=== PATIENT | female | born 1965 ===

== ENCOUNTER 2017-06-22 16:45 | Emergency (ER) | payer BC ==
[2017-06-22 16:46] VITALS: BMI 41.5
[2017-06-22 16:53] VITALS: RESP 18; TEMP 98.6
[2017-06-22] MEDS ORDERED: DiphenhydrAMINE 50 mg/ml Inj IVP STA (17:31)
--- NOTE | 2017-06-22 17:36 | ED PDOC ---
Arrival/HPI - General Chief Complaint: Headache Time Seen by Provider: 06/22/17 16:59 Historian: Patient - History of Present Illness Narrative History of Present Illness (Text): 06/22/17 17:32 52 yo F with past medical history of hypertension, reports onset of constant throbbing headache to the top of her head, which started this morning when she woke up at 6 AM, patient states she attributed her symptoms to possible elevated blood pressure and took her usual dose of lisinopril 10 mg, however the headache persisted all day, she took a dose of Advil at 10 AM with no improvement. Then at 2pm started to feel dizzy, described as vertigo with nausea , which is new. Patient reports that she has been experiencing similar headaches intermittently for the past month occurring at least once a week. Otherwise: (-) thunderclap headache, (-) worse headache of life, (-) fever, (-) chills, (-) URI, (-) trauma / injury, (-) CP, (-) SOB, (-) palpitations, (-) neck pain, (-) vomiting, (-) photophobia, (-) phonophobia, (-) focal weakness / numbness, (-) subjective neurologic symptoms. [facility] Islas Past Medical History - Provider Review Nursing Documentation Reviewed: Yes - Infectious Disease Hx of Infectious Diseases: None - Cardiac Hx Hypertension: Yes - Endocrine/Metabolic Hx Diabetes Mellitus Type 2: Yes - Psychiatric Hx Substance Use: No - Surgical History Hx Section: Yes (x2) Hx Cholecystectomy: Yes - Anesthesia Hx Anesthesia: Yes Hx Anesthesia Reactions: No Hx Malignant Hyperthermia: No Family/Social History - Physician Review Nursing Documentation Reviewed: Yes Family/Social History: No Known Family HX Smoking Status: Never Smoked Hx Alcohol Use: No Hx Substance Use: No Allergies/Home Meds Allergies/Adverse Reactions: Allergies No Known Allergies Allergy (Verified 06/22/17 16:47) Home Medications: Home Meds Medication Instructions Recorded Confirmed Amlodipine/Valsartan 1 tab PO DAILY 06/22/17 06/22/17 [Amlodipine-Valsartan 10-320 mg] Clarithromycin [Biaxin Filmtab] 1 tab PO DAILY 06/22/17 06/22/17 Dapagliflozin/Metformin HCl 1 tab PO DAILY 06/22/17 06/22/17 [Xigduo Xr 5 mg-1,000 mg Tablet] Review of Systems - Review of Systems Constitutional: Normal. absent: Fatigue, Weight Change, Fevers Eyes: Normal. absent: Vision Changes, Photophobia, Eye Pain ENT: Normal, Sore Throat. absent: Hearing Changes, Rhinorrhea, Epistaxis, Sinus Congestion Respiratory: Normal Cardiovascular: Normal Gastrointestinal: Normal, Nausea. absent: Abdominal Pain, Stool Changes, Vomiting, Appetite Changes Musculoskeletal: Normal. absent: Arthralgias, Back Pain, Neck Pain Skin: Normal. absent: Rash, Pruritis, Skin Lesions Neurological: Normal, Headache, Dizziness. absent: Focal Weakness, Speech Changes, Facial Droop Physical Exam - Physical Exam Narrative Physical Exam (Text): 06/22/17 17:37 GENERAL APPEARANCE: Patient is awake, alert, oriented x 3, in mild painful distress. SKIN: Warm, dry; (-) cyanosis; (-) rash. HEAD: (-) scalp swelling or tenderness, (-) temporal artery tenderness. EYES: (-) conjunctival pallor, (-) scleral icterus. ENMT: (-) sinus tenderness; mucous membranes moist. NECK: (-) tenderness, (-) stiffness, (-) meningismus, (-) lymphadenopathy. CHEST AND RESPIRATORY: (-) rales, (-) rhonchi, (-) wheezes; breath sounds equal bilaterally. HEART AND CARDIOVASCULAR: (-) irregularity; (-) murmur, (-) gallop. ABDOMEN AND GI: Soft; (-) tenderness. EXTREMITIES: (-) deformity. NEURO AND PSYCH: Mental status as above. 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 Strength and DTRs symmetric. Babinski normal bilaterally. Vital Signs Temp Pulse Resp BP Pulse Ox 06/22/17 19:14 92 H 18 129/78 95 06/22/17 19:00 93 H 18 137/79 97 06/22/17 16:45 98.6 F 93 H 18 167/87 H 97 Finger Stick Blood Glucose: 316 Medical Decision Making ED Course and Treatment: 06/22/17 17:36 52 yo F with past medical history of hypertension, reports onset of constant throbbing headache to the top of her head, which started this morning, with dizziness, described as vertigo with nausea. Plan: -- Labs -- IV fluids -- Urinalysis -- EKG -- CXR -- benadryl IV / Reglan IVl -- Reassess and disposition -- CT head EKG: NSR at 93 bpm, (-) acute ST changes, as read by PA. Chest x-ray : NAD, as read by PA. On reevaluation, patient reports significant improvement of her headache, reports no dizziness, chest pain, shortness of breath, nausea or abdominal pain. Patient has no other complaints at this time. Repeat vital signs BP 137/ 79 O2sat : 95%RA. Repeat exam, lungs cta, cardiac RRR, repeat neuro exam shows no focal findings, patient is ambulatory in the ED with a normal gait. Diagnostic results d/w the patient, notified of glucose 283, she states that she was recently dx with DM and is on metformin, which she did not disclose earlier. Patient was advised to follow up with primary care physician in 1-2 days without fail. Advised to take medication as prescribed. Return to the emergency room at any time for any new or worsening symptoms. Patient states she fully agrees with and understands discharge instructions. States that she agrees with the plan and disposition. Verbalized and repeated discharge instructions and plan. I have given the patient opportunity to ask any additional questions. - Lab Interpretations Lab Results: 06/22/17 17:30 06/22/17 17:30 Lab Results 06/22/17 17:30: Sodium 136, Potassium 4.2, Chloride 100, Carbon Dioxide 24, Anion Gap 16, BUN 9, Creatinine 0.5, Est GFR ( Amer) > 60, Est GFR (Non- Af Amer) > 60, Random Glucose 283 H, Calcium 9.2, Total Bilirubin 0.4, AST 41 H , ALT 57 H, Alkaline Phosphatase 115, Lactate Dehydrogenase 447, Total Creatine Kinase 40, Troponin I < 0.01, Total Protein 8.4 H, Albumin 4.4, Globulin 4.0, Albumin/Globulin Ratio 1.1 06/22/17 17:30: PT 10.0, INR 0.93, APTT 26.8 06/22/17 17:30: WBC 5.1, RBC 4.66, Hgb 13.5, Hct 40.0, MCV 85.8, MCH 29.0, MCHC 33.8, RDW 13.9, Plt Count 335, MPV 9.3, Gran % 58.6, Lymph % (Auto) 29.5, [place] % (Auto) 8.6 H, Eos % (Auto) 2.9, Baso % (Auto) 0.4, Gran # 2.99, Lymph # 1.5, [place] # 0.4, Eos # 0.2, Baso # 0.02 I have reviewed the lab results: Yes - RAD Interpretation Narrative RAD Interpretations (Text): 06/22/17 18:59 CT head : FINDINGS: HEMORRHAGE: No intracranial hemorrhage. BRAIN: No mass effect or edema. The valencia-white matter differentiation appears intact.Please note that MRI with diffusion imaging is more sensitive in the detection of acute ischemic event. VENTRICLES: No hydrocephalus. CALVARIUM: Unremarkable. PARANASAL SINUSES: Unremarkable as visualized. No significant inflammatory changes. MASTOID AIR CELLS: Unremarkable as visualized. No inflammatory changes. OTHER FINDINGS: None. IMPRESSION: No acute intracranial pathology identified. Radiology Orders: 06/22/17 17:30 CHEST PORTABLE [RAD] Stat 06/22/17 17:31 HEAD W/O CONTRAST [CT] Stat - Medication Orders Current Medication Orders: Discontinued Medications Diphenhydramine HCl (Benadryl) 25 mg IVP STAT STA Stop: 06/22/17 17:32 Last Admin: 06/22/17 17:45 Dose: 25 mg IVP Administration Document 06/22/17 17:45 AD (Rec: 06/22/17 17:46 AD [id number]) Charges for Administration # of IVP Administrations 1 Metoclopramide HCl (Reglan) 10 mg IVP STAT STA Stop: 06/22/17 17:32 Last Admin: 06/22/17 17:45 Dose: 10 mg IVP Administration Document 06/22/17 17:45 AD (Rec: 06/22/17 17:45 AD [id number]) Charges for Administration # of IVP Administrations 1 - 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 Disposition/Present on Arrival - Present on Arrival Any Indicators Present on Arrival: No History of DVT/PE: No History of Uncontrolled Diabetes: No Urinary Catheter: No History of Decub. Ulcer: No History Surgical Site Infection Following: None - Disposition Have Diagnosis and Disposition been Completed?: Yes Diagnosis: Headache, Dizziness Disposition: HOME/ ROUTINE Disposition Time: 19:00 Patient Plan: Discharge Condition: IMPROVED Discharge Instructions (ExitCare): Acute Headache (ED), Dizziness (ED) Print Language: UKRAINIAN Additional Instructions: Thank you for letting us take care of you today. You were treated for headache, dizziness. The emergency medical care you received today was directed at your acute symptoms. If you were prescribed any medication, please fill it and take as directed. It may take several days for your symptoms to resolve. Return to the Emergency Department if your symptoms worsen, do not improve, or if you have any other problems. Please contact your doctor in 2 days for re-evaluation and follow upt. Bring any paperwork you were given at discharge with you along with any medications you are taking to your follow up visit. Our treatment cannot replace ongoing medical care by a primary care provider (PCP) outside of the emergency department. Thank you for allowing the [facility] team to be part of your care today. If you had an X-Ray or CT scan: A Radiologist will review the ED reading if any change in treatment is needed we will contact you. Prescriptions: Metoclopramide HCl [Reglan] 10 mg PO QID PRN #20 tablet PRN Reason: Headache Referrals: Bhargavi Islas MD [Primary Care Provider] - Follow up with primary Forms: [employer] (Samoan)
[2017-06-22 17:42] LABS: BASO # 0.02 K/mm3 (0.0-2.0); BASO % 0.4 % (0.0-3.0); EOS # 0.2 (0.0-0.7); EOS % 2.9 % (1.5-5.0); GRAN # 2.99 (1.4-6.5); GRAN % 58.6 % (50.0-68.0); LYMPH # 1.5 (1.2-3.4); LYMPH % 29.5 % (22.0-35.0); MEAN CELL VOLUME 85.8 fl (80.0-105.0); MEAN CORPUSCULAR HGB CONC 33.8 g/dl (31.0-37.0); MEAN PLATELET VOLUME 9.3 fl (7.0-11.0); MONO # 0.4 (0.1-0.6); MONO % 8.6 % (1.0-6.0); RED CELL DISTRIBUTION WIDTH 13.9 % (11.5-14.5); WHITE BLOOD COUNT 5.1 10^3/ul (4.5-11.0)
[2017-06-22 17:54] LABS: ALB/GLOB RATIO 1.1 (1.1-1.8); ALKALINE PHOSPHATASE 115 U/L (38-126); ALT/SGPT 57 U/L (7-56); AST/SGOT 41 U/L (14-36); BILIRUBIN,TOTAL 0.4 mg/dL (0.2-1.3); BLOOD UREA NITROGEN 9 mg/dL (7-21); CALCIUM 9.2 mg/dL (8.4-10.5); CARBON DIOXIDE 24 mmol/L (21-33); CHLORIDE 100 mmol/L (98-107); GFR AFRICAN-AMERICAN > 60; GLUCOSE,RANDOM 283 mg/dL (70-110); INR 0.93 (0.93-1.08); PARTIAL THROMBOPLASTIN TIME 26.8 Seconds (23.7-30.8); POTASSIUM 4.2 mmol/L (3.6-5.0); SODIUM 136 mmol/L (132-148); TOTAL PROTEIN 8.4 g/dL (5.8-8.3)
[2017-06-22 18:11] LABS: TROPONIN I < 0.01 ng/mL
--- NOTE | 2017-06-22 18:18 | CT ---
PROCEDURE: CT HEAD WITHOUT CONTRAST. HISTORY: headache, elevated bp COMPARISON: None available. TECHNIQUE: Axial computed tomography images were obtained through the head/brain without intravenous contrast. Radiation dose: Total exam DLP = 725.84 mGy-cm. This CT exam was performed using one or more of the following dose reduction techniques: Automated exposure control, adjustment of the mA and/or kV according to patient size, and/or use of iterative reconstruction technique. FINDINGS: HEMORRHAGE: No intracranial hemorrhage. BRAIN: No mass effect or edema. The valencia-white matter differentiation appears intact.Please note that MRI with diffusion imaging is more sensitive in the detection of acute ischemic event. VENTRICLES: No hydrocephalus. CALVARIUM: Unremarkable. PARANASAL SINUSES: Unremarkable as visualized. No significant inflammatory changes. MASTOID AIR CELLS: Unremarkable as visualized. No inflammatory changes. OTHER FINDINGS: None. IMPRESSION: No acute intracranial pathology identified.
--- NOTE | 2017-06-22 18:38 | RAD ---
HISTORY: headache COMPARISON: No prior. FINDINGS: LUNGS: No active pulmonary disease. PLEURA: No significant pleural effusion identified, no pneumothorax apparent. CARDIOVASCULAR: Cardiomegaly is not excluded. No pulmonary vascular derangement identified nevertheless. OSSEOUS STRUCTURES: No significant abnormalities. VISUALIZED UPPER ABDOMEN: Normal. OTHER FINDINGS: None. IMPRESSION: Potential cardiomegaly versus technical magnification. No infiltrate bilaterally.
[2017-06-22 19:15] VITALS: BP 129/78; PULSE 92; O2SAT 95
--- NOTE | 2017-06-23 01:02 | CARD ---
APPROVED REPORT EKG Measurement Heart [id number] <Conclusion> Normal sinus rhythm Possible Left atrial enlargement Cannot rule out Anterior infarct, age undetermined Abnormal ECG
== END 2017-06-22 19:36 | disposition home or self-care (01) ==
LOC: ED 16:45
DX: R51 Headache (principal); R42 Dizziness and giddiness; I10 Essential (primary) hypertension; E11.9 Type 2 diabetes mellitus without complications
CPT/HCPCS: 70450; 71010; 80053; 82550; 83615; 84484; 85025; 85610; 85730; 93005; 96374; 96375; 99285; J1200; J2765